=== PATIENT | female | born 1990 | race African-American/Black ===

== ENCOUNTER 2023-08-22 14:20 | Emergency (ER) | payer OTHER ==
[~2023-08-22] VITALS: Ht 170.2 cm; Wt 68.0 kg
[2023-08-22 14:24] VITALS: O2SAT 98
[2023-08-22] MEDS: IBUPROFEN 600MG TABLET PO STA (16:03)
[2023-08-22] MEDS ORDERED: IBUP-2029 MT (17:25)
[2023-08-22] MEDS ORDERED: CYCL10TA21 MT (17:26)
[2023-08-22 18:11] VITALS: BP 124/71; PULSE 75; RESP 16; TEMP 98.3
== END 2023-08-22 18:13 | disposition home or self-care (01) ==
LOC: ER 14:20
DX: S02.2XXA Fracture of nasal bones, initial encounter for closed fracture (principal); S05.11XA Contusion of eyeball and orbital tissues, right eye, initial encounter; S09.90XA Unspecified injury of head, initial encounter; J45.909 Unspecified asthma, uncomplicated; Y04.0XXA Assault by unarmed brawl or fight, initial encounter; Y93.89 Activity, other specified; Y92.89 Other specified places as the place of occurrence of the external cause; Y99.8 Other external cause status
CPT/HCPCS: 70486; 81025; 99284